=== PATIENT | male | born 1945 | race Caucasian/White ===

== ENCOUNTER → 2018-03-16 14:44 | Outpatient (CLI) | payer MEDICARE, OTHER, SELFPAY ==
--- NOTE | 2018-03-16 | DI.RAD.S_ITS ---
PROCEDURE: XR ANKLE RT MIN 3V INDICATIONS: Right Ankle Pain TECHNIQUE: 3 views of the ankle were acquired. COMPARISON: None. FINDINGS: Bones: No fractures or dislocations. Ankle mortise is normally aligned. No suspicious bony lesions. There is a corticated ossicle distal to the lateral malleolus, likely sequelae of old injury. There is calcaneal spurring. Mild degenerative changes present. Soft tissues: No tibiotalar joint effusion. Achilles tendon appears normal. There is a calcified body in the posterior aspect of the plantar soft tissue. IMPRESSION: 1. A small corticated ossicle distal to the lateral malleolus, likely sequela of old injury. 2. Degenerative joint disease. 3. A calcified body in the plantar soft tissue. Dictated by: Heide Vincent M.D. on 03/16/2018 at 15:31 Approved by: Heide Vincent M.D. on 03/16/2018 at 15:34
== END ==
PROVIDERS: PCP Family Medicine; Visit Provider Family Medicine
DX: M25.571 Pain in right ankle and joints of right foot (principal); M19.071 Primary osteoarthritis, right ankle and foot; M77.31 Calcaneal spur, right foot
CPT/HCPCS: 73610

== ENCOUNTER 2019-04-12 07:14 | Day surgery (SDC) | payer MEDICARE, OTHER, SELFPAY ==
--- NOTE | 2019-04-11 19:17 | PM.PREOP ---
Pre-operative Note Interval Note History & Physical reviewed/Exam performed by Physician: Yes Changes to H&P: No H&P completed within 30 days and has changed as indicated here:: His fasting glucose is 167 today and he took metformin. He does not monitor at home. He is stable to proceed to surgery as planned.
[2019-04-12] MEDS: PROPARACAINE 0.5% OPHTH SOL 2 DROPS EYE-OP (08:04)
[2019-04-12 08:05] VITALS: BP 159/87; PULSE 62; RESP 15; TEMP 36.1; O2SAT 98; BMI 34.2
--- NOTE | 2019-04-12 08:11 | PM.OP.1 ---
Operative Date/Time/Diagnoses Date of procedure: 04/12/19 Time of procedure: 08:45 Procedure & Clinicians Procedure: Preoperative diagnoses: 1. Right nuclear sclerotic and cortical cataract. 2. Diabetes without retinopathy. 3. Obesity. 4. s/p Blepharoplasty. Postoperative diagnoses: 1. Cataract removed by phacoemulsification with placement of posterior chamber intraocular lens. Procedure: Phacoemulsification with posterior chamber intraocular lens implant Surgeon: Jayla Lozano MD Complications: None Specimen: None Implant: ZCBOO+15.0 Blood loss: None Anesthesia: Retrobulbar with monitored standby Elsa near and Description of procedure: Patient presents with a complaint of decreased vision due to cataract which is affecting activities of daily living. 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 of daily He The patient wants surgery to improve vision. The patient was taken to the operating room and given IV sedation. A retrobulbar block consisting of 6 cc of 2% xylocaine without epinephrine mixed half and half with 0.5% Marcaine with 1 cc of hyaluronidase added is placed between the medial and lateral 1/3 of the inferior orbital rim. The eye is manually massaged for 30 sec, prepped using Betadine solution, and draped in the usual sterile fashion. Long axial length. Peribulbar block and 1% topical xylocaine gel was placed. Temporal approach was made, a 1 mm side-port incision was made 90? from the proposed clear corneal incision position. Phenylephrine 1.5% mixed with 1% xylocaine 0.2 cc was placed into the anterior chamber. Viscoat followed by Mary Grace was then placed. A 2.6 mm clear incision with a 2.6 mm blade was placed. A 360 degree capsulorrhexis style capsulotomy was then performed with a cystitome needle on a Healon. There was dense cortical spokes nasally and the capsulorrhexis was completed with Utrata forceps due to visibility. Hydrodelineation and hydrodissection were performed. The phacoemulsification unit is introduced, and sculpting notice used to groove the central lens. It is then removed in chopping mode. Epi nucleus is removed with epinuclear mode and irrigation aspiration was used to remove the peripheral cortex. The posterior capsule is polished. The intraocular lens is selected, inspected, power confirmed, and placed in the posterior chamber. The wound was stromally hydrated and tested for leaks, there was none and it was left sutureless. Vigamox 0.1 cc was placed into the anterior chamber. Kenalog 0.2 cc was placed in the superior subconjunctival space. A drop of antibiotic and was placed and the eye was patched and shielded. The patient was stable and returned to the recovery room in excellent condition. Dictated by: Jayla Lozano MD Copy to: [facility] Same procedure as scheduled: Yes
[2019-04-12] MEDS: CATARACT EYE COMPOUND (10 DROPS/SYRINGE) 3 DROPS EYE-OP (08:17)
--- NOTE | 2019-04-12 08:52 | SUR.OPER ---
Supine on eye stretcher, head on extension cradle secured with tape. Arms tucked at sides with blanket. Pillow under knees.
[2019-04-12] MEDS: HYALURONATE SODIUM 10 MG/ML SYRINGE INJ (09:04)
[2019-04-12] MEDS: CHONDROIDTIN/SOD HYALURONATE 1.05 ML SYRINGE INTRAOCULA (09:05)
[2019-04-12] MEDS: LIDOCAINE 2% 4 ML, BUPIVACAINE 0.5% (PF) 4 ML, HYALURONIDASE 150 UNIT INJ (09:05)
[2019-04-12] MEDS: BALANCED SALT IRRIG SOLN NO.2 500 ML, EPINEPHrine 1 MG IRR (09:06)
[2019-04-12] MEDS: MOXIFLOXACIN INJ 5 MG/ML VIAL EYE-OP (09:08)
[2019-04-12] MEDS: PHENYLEPHRINE/LIDOCAINE VIAL (OR) 0.2 ML EYE-OP (09:08)
[2019-04-12] MEDS: TRIAMCINOLONE 50 MG/5 ML VIAL INJ (09:08)
[2019-04-12] MEDS: ERYTHROMYCIN OPHTH 1 GM OINT 1 APPLIC EYE-RIGHT (09:10)
[2019-04-12] MEDS: LIDOCAINE JELLY 2% 5 ML 1 APPLIC TOP (09:12)
[2019-04-12 09:33] VITALS: BP 159/86; PULSE 65; RESP 16; TEMP 37.3; O2SAT 97
== END 2019-04-12 09:44 | disposition home or self-care (01) ==
LOC: OR 07:18
PROVIDERS: PCP Family Medicine; Referring Provider Ophthalmology; Visit Provider Ophthalmology
PROC: (CPT 66984; principal; 2019-04-12 08:45)
DX: H25.811 Combined forms of age-related cataract, right eye (principal)
CPT/HCPCS: 66984; J0171; J2704; J3301; J3470

== ENCOUNTER 2019-04-26 06:55 | Day surgery (SDC) | payer MEDICARE, OTHER, SELFPAY ==
--- NOTE | 2019-04-22 12:57 | PM.PREOP ---
Pre-operative Note Interval Note History & Physical reviewed/Exam performed by Physician: Yes Changes to H&P: No H&P completed within 30 days and has changed as indicated here:: Stable glucose at . Has had primary care evaluation for variable glucose and hypertension. Fasting glucose 146 AM of surgery.
--- NOTE | 2019-04-22 12:59 | P.OP_ITS ---
Operative Date/Time/Diagnoses Date of procedure: 04/26/19 Time of procedure: 08:45 Procedure & Clinicians Procedure: Preoperative diagnoses: 1. Left nuclear sclerotic and cortical cataract with a long axial length. 2. Non-insulin diabetes without retinopathy. 3. Hypertension slightly labile 4. Obesity. 5. Hypercholesterolemia. 6. Previous right cataract surgery. 7. Previous back and hip surgery. Postoperative diagnoses: 1. Cataract removed by phacoemulsification with placement of posterior chamber intraocular lens. 2. Complex surgery with use of capsular dye due to poor red reflex from advanced cortical change. Procedure: Phacoemulsification with posterior chamber intraocular lens implant Surgeon: Jayla Lozano MD Complications: None Specimen: None Implant: ZCBOO +14.0 Blood loss: None Anesthesia: Retrobulbar with monitored standby Description of procedure: Patient presents with a complaint of decreased vision due to cataract which is affecting activities of daily living. 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 He feels his current vision is reduced both at distance and near and he was wearing contact lenses The patient wants surgery to improve vision. His glucose fasting was 146 prior to surgery in his blood pressure was stable although both have been labile in the last several weeks. The patient was taken to the operating room and given IV sedation. Under the operating microscope it was noted that the patient had very poor red reflex and diffuse cortical changes in that it was best to use capsular dye. A retrobulbar block consisting of 6 cc of 2% xylocaine without epinephrine mixed half and half with 0.5% Marcaine with 1 cc of hyaluronidase added is placed between the medial and lateral 1/3 of the inferior orbital rim. The eye is manually massaged for 30 sec, prepped using Betadine solution, and draped in the usual sterile fashion. Temporal approach was made, a 1 mm side-port incision was made 90? from the proposed clear corneal incision position. Phenylephrine 1.5% mixed with 1% xylocaine 0.2 cc was placed into the anterior chamber. Viscoat followed by Aleshaon was then placed. An air bubble was placed and then Visudyne capsular dye placed into the anterior chamber A 2.6 mm clear incision with a 2.6 mm blade was placed. A 360 degree capsulorrhexis style capsulotomy was then performed with a cystitome needle on a Healon. Greatly aided by the capsular dye. It was a very deep anterior chamber is a high myope. Hydrodelineation and hydrodissection were performed. The phacoemulsification unit is introduced, and sculpting notice used to groove the central lens. It is then removed in chopping mode. Epi nucleus is removed with epinuclear mode and irrigation aspiration was used to remove the peripheral cortex. The posterior capsule is polished. The intraocular lens is selected, inspected, power confirmed, and placed in the posterior chamber. The wound was stromally hydrated and tested for leaks, there was none and it was left sutureless. Vigamox 0.1 cc was placed into the anterior chamber. Kenalog 0.2 cc was placed in the superior subconjunctival space. A drop of antibiotic and was placed and the eye was patched and shielded. The patient was stable and returned to the recovery room in excellent condition. Dictated by: Jayla Lozano MD Copy to: [facility] Same procedure as scheduled: Yes
[2019-04-26] MEDS: PROPARACAINE 0.5% OPHTH SOL 2 DROPS EYE-OP (08:02)
[2019-04-26] MEDS: CATARACT EYE COMPOUND (10 DROPS/SYRINGE) 3 DROPS EYE-OP (08:04)
[2019-04-26 08:11] VITALS: BP 176/89; PULSE 56; RESP 16; TEMP 36.2; O2SAT 96; BMI 32.5
--- NOTE | 2019-04-26 09:10 | SUR.OPER ---
Supine on eye stretcher, head on extension cradle secured with tape. Arms tucked at sides with blanket. Pillow under knees.
[2019-04-26] MEDS: TRYPAN BLUE 0.5 ML SYRINGE INJ (09:20)
[2019-04-26] MEDS: LIDOCAINE 2% 4 ML, BUPIVACAINE 0.5% (PF) 4 ML, HYALURONIDASE 150 UNIT INJ (09:22)
[2019-04-26] MEDS: MOXIFLOXACIN INJ 5 MG/ML VIAL EYE-OP (09:23)
[2019-04-26] MEDS: PHENYLEPHRINE/LIDOCAINE VIAL (OR) 0.2 ML EYE-OP (09:24)
[2019-04-26] MEDS: TRIAMCINOLONE 50 MG/5 ML VIAL INJ (09:24)
[2019-04-26] MEDS: HYALURONATE SODIUM 10 MG/ML SYRINGE INJ (09:25)
[2019-04-26] MEDS: CHONDROIDTIN/SOD HYALURONATE 1.05 ML SYRINGE INTRAOCULA (09:25)
[2019-04-26] MEDS: BALANCED SALT IRRIG SOLN NO.2 500 ML, EPINEPHrine 1 MG IRR (09:26)
[2019-04-26] MEDS: ERYTHROMYCIN OPHTH 1 GM OINT 1 APPLIC EYE-LEFT (09:27)
[2019-04-26 10:00] VITALS: BP 170/80; PULSE 57; RESP 16; TEMP 36.6; O2SAT 99
== END 2019-04-26 10:11 | disposition home or self-care (01) ==
LOC: OR 06:58
PROVIDERS: PCP Family Medicine; Referring Provider Ophthalmology; Visit Provider Ophthalmology
PROC: (CPT 66982; principal; 2019-04-26 08:45)
DX: H25.812 Combined forms of age-related cataract, left eye (principal)
CPT/HCPCS: 66982; J0171; J2704; J3301; J3470

== ENCOUNTER → 2021-06-23 14:14 | Outpatient (CLI) | payer MEDICARE, OTHER, SELFPAY ==
[2021-06-23 16:19] LABS: COVID19 -Nasal RAPID Negative (Negative)
== END ==
PROVIDERS: PCP Family Medicine; Visit Provider Family Medicine Sleep Medicine
DX: Z20.822 Contact with and (suspected) exposure to COVID-19 (principal)
CPT/HCPCS: 87635; C9803

== ENCOUNTER 2021-06-24 13:59 | Day surgery (SDC) | payer MEDICARE, OTHER, SELFPAY ==
--- NOTE | 2021-06-24 12:38 | P.HP_ITS ---
History of Present Illness History of Present Illness Date Patient Seen: 06/24/21 Chief complaint: SDC Narrative: 76 year old male comes in today for consideration of a screening colonoscopy. He has had 2 previous colonoscopies, both normal. There have been no lower GI symptoms suggesting disease such as change in bowel habits, bleeding, abdominal pain or anemia. There's been no family history of colon cancer or colon polyps. Overall health issues have been stable, including no major cardiac events for at least 6 weeks. PCP: Dr. Gill Past medical history: Obstructive sleep apnea BPH Diabetes mellitus type 2 Hyperlipidemia Hypertension Obesity GERD Erectile dysfunction Right footdrop Past Surgical History: Lower back disc 1981 Right hip replacement 01/08/2015 Family History: Father: Diabetes type 2, of pancreatic cancer age 70+ Mother: of breast cancer age 40 Social History: Marital Status: Occupation:Retired computer software engineer Household Members: spouse Alcohol drinks/day: 1/day wine >5/day in last 3 mos: no Type of Exercise: bike,walk,row Exercise Times per Week: 3 Smoking Status: current some day smoker Tobacco Type: cigars Drug Use: no Patient History Medical History (Updated 11/16/20 @ 13:46 by ANNEMARIE Jeter) Acquired right foot drop (~1981) BPH (benign prostatic hyperplasia) Essential hypertension Hyperlipidemia Lumbosacral pain, chronic Obesity (BMI 30-39.9) (Unknown) Obstructive sleep apnea, adult Snoring Type 2 diabetes mellitus (~04/26/19) Surgical History (Updated 11/16/20 @ 13:18 by ANNEMAREI Jeter) Cataract extraction status of right eye History of lumbosacral spine surgery (~1981) History of total right hip arthroplasty Family & Social History Social History: household members spouse Tobacco & Substance use: Tobacco type cigars Smoking Status Current some day smoker alcohol intake current alcohol intake frequency a few times a week Substance Use Type does not use Meds Home Medications and Allergies Home Medications Medication Instructions Recorded Confirmed Type aspirin 81 mg tablet,delayed 81 mg PO DAILY 04/12/19 06/24/21 History release (Aspir-) atorvastatin 20 mg tablet 20 mg PO DAILY 04/12/19 06/24/21 History glipizide 2.5 mg tablet, extended 2.5 mg PO DAILY 04/12/19 06/24/21 History release 24 hr losartan 25 mg tablet 25 mg PO DAILY 04/12/19 06/24/21 History metformin 1,000 mg tablet 1,000 mg PO BID 04/12/19 06/24/21 History omeprazole 20 mg capsule,delayed 20 mg PO DAILY 04/26/19 06/24/21 History release ResMed AirSense 10 Auto 11/15/20 11/15/20 History melatonin See Rx Instructions .ROUTE .COMPLEX 06/24/21 06/24/21 History Allergies Allergy/AdvReac Type Severity Reaction Status Date / Time No Known Drug Allergies Allergy Verified 06/24/21 14:14 Review of Systems Review of Systems Narrative: All remaining ROS were reviewed and negative except as addressed. Exam Narrative Exam Narrative: GENERAL: Alert and oriented, appearing stated age and in no acute distress. HEENT: Head normocephalic/atraumatic. Extraocular movements intact. LUNGS: Clear to ausculation bilaterally, no wheezes, rhonchi or rales. CV: Normal S1 and S2 with regular rate and rhythm, no audible murmurs, rubs or gallops. ABDOMEN: Soft, non-tender, non-distended, no organomegaly. Positive bowel sounds. EXTREMITIES: No clubbing, cyanosis, or edema. NEURO: Cranial nerves II through XII grossly intact, no focal deficits. PSYCH: Alert and oriented x 3. SKIN: No concerning lesions. Assessment & Plan Assessment & Plan narrative: 1. Screening for colon cancer Plan for colonoscopy. The nature and character of the procedure as well as anticipated results were discussed. The possibility of not completing the procedure was also discussed. Possible complications including aspiration pneumonia, bleeding, perforation and reaction to medications either for sedation or preparation and missed lesions were discussed. Questions were answered and proceeding to the colonoscopy was elected. Informed consent signed. I sincerely appreciate the referral allowing me to participate in this patient's care. Please contact me with any questions or concerns.
--- NOTE | 2021-06-24 12:43 | PM.OP.COLON ---
Operative Date/Time/Diagnoses Date of procedure: 06/24/21 Procedure Notes SCOAP/Timeout: 3:36 p.m. Procedure in detail: ENDOSCOPIST: Noemi De La Cruz MD Sedation RN: Carisa Noguera RN Sedation start time: 3:37 p.m. Sedation end time: 4:10 p.m. PROCEDURE: Colonoscopy INDICATIONS: 1. Screening for colon cancer MEDICATION: Levsin 0.125 mg sublingual, incremental doses of Versed and fentanyl until appropriate level sedation achieved. ASA CLASS: 2 CECAL WITHDRAWAL TIME: 8 minutes COMPLICATIONS: None. EXTENT OF PROCEDURE: Cecum. QUALITY OF PREP: Good with portions of liquid stool. PROCEDURE: Prior to insertion of the colonoscope, a digital rectal examination was accomplished with circumferential palpation of the distal rectal mucosa without significant findings being noted. The high-definition colonoscope was passed into the rectum in the usual fashion and advanced over to the cecum with some difficult due to tortuosity. The ileocecal valve, appendiceal stoma, and medial wall all could be inspected and no abnormalities were seen. ASCENDING COLON: As the colonoscope was withdrawn, care was taken to expose and inspect the haustral folds and no abnormalities were seen. HEPATIC FLEXURE: Normal, no polyps, diverticula or other abnormalities. TRANSVERSE COLON: Normal, no polyps, diverticula or other abnormalities. DESCENDING COLON: Minor diverticulosis, otherwise, normal, no polyps or other abnormalities. SIGMOID COLON: Minor diverticulosis, otherwise, normal, no polyps or other abnormalities. RECTUM: Normal. J maneuver was produced. There was no significant perianal disease. The J maneuver was broken. The remainder of the rectum was inspected and there was moderate external hemorrhoid disease. The scope was withdrawn. IMPRESSION: 1. Normal colonoscopy 2. Left-sided diverticulosis, minor 3. External hemorrhoid disease PLAN: 1. Secondary to age, this can be patient's last colonoscopy. The possibility of a missed lesion including a malignancy has been discussed with the patient previously. Potential alarm symptoms have been discussed and should be reported immediately.
[2021-06-24] MEDS: HYOSCYAMINE 0.125 MG TABLET PO (14:19)
[2021-06-24 14:27] VITALS: BP 141/84; PULSE 63; RESP 16; TEMP 36.3; O2SAT 98; BMI 33.9
[2021-06-24] MEDS: LACTATED RINGERS 1,000 ML 200 ML IV (15:16)
[2021-06-24] MEDS: MIDAZOLAM 5 MG/5 ML VIAL 6 MG IV (15:37)
[2021-06-24] MEDS: fentaNYL 250 MCG/5 ML INJ 200 MCG IV (15:37)
[2021-06-24 16:14] VITALS: BP 145/83; PULSE 64; RESP 12; TEMP 37.4; O2SAT 97
[2021-06-24 16:20] VITALS: BP 132/74; PULSE 64; RESP 18; O2SAT 99
[2021-06-24 16:25] VITALS: BP 133/73; PULSE 62; RESP 12; O2SAT 98
[2021-06-24 16:30] VITALS: BP 127/72; PULSE 59; RESP 13; TEMP 36.6; O2SAT 98
[2021-06-24 16:41] VITALS: BP 133/71; PULSE 63; RESP 19; TEMP 36.9; O2SAT 98
== END 2021-06-24 16:52 | disposition home or self-care (01) ==
PROVIDERS: PCP Family Medicine; Referring Provider Student in an Organized Health Care Education/Training Program; Visit Provider Student in an Organized Health Care Education/Training Program
PROC: 0DJD8ZZ Inspection of Lower Intestinal Tract, Via Natural or Artificial Opening Endoscopic (ICD-10-PCS; CPT 45378; principal; 2021-06-24 15:15)
DX: Z12.11 Encounter for screening for malignant neoplasm of colon (principal); K57.30 Diverticulosis of large intestine without perforation or abscess without bleeding; K64.4 Residual hemorrhoidal skin tags
CPT/HCPCS: G0105; J2250; J3010

== ENCOUNTER 2022-01-30 13:26 | Emergency (ER) | payer MEDICARE, OTHER, SELFPAY ==
[2022-01-30 13:55] VITALS: BP 172/76; PULSE 71; RESP 18; TEMP 36.6; O2SAT 96; BMI 33.2
--- NOTE | 2022-01-30 14:03 | DI.RAD.S_ITS ---
PROCEDURE: XR ELBOW RT MIN 3V INDICATIONS: atraumatic elbow red/swelling TECHNIQUE: 3 views of the elbow were acquired. COMPARISON: None. FINDINGS: Bones: No fractures or dislocations. No suspicious bony lesions. Soft tissues: No elbow joint effusion. No suspicious soft tissue calcifications. Soft tissue swelling posterior to olecranon. IMPRESSION: No acute osseous abnormalities. Soft tissue swelling over the olecranon. Dictated by: Heide Vincent M.D. on 01/30/2022 at 14:49 Approved by: Heide Vincent M.D. on 01/30/2022 at 14:50
[2022-01-30 14:34] LABS: Add Manual Diff / Slide Review NO; Basophils Absolute Auto 0 /uL (0-100); Basophils Percent Auto 0.7 % (0-2); Eosinophils Absolute Auto 100 /uL (0-450); Eosinophils Percent Auto 1.4 % (2-4); Hematocrit 39.7 % (41-53); Hemoglobin 13.6 g/dL (13.5-17.5); Lymphocytes Absolute Auto 1400 /uL (1100-4500); Lymphocytes Percent Auto 19.5 % (25-40); Mean Corpuscular HGB Conc 34.4 % (30-36); Mean Corpuscular Hemoglobin 31.1 PG (26-34); Mean Corpuscular Volume 90.4 fL (80-100); Monocytes Absolute Auto 700 /uL (0-900); Neutrophils Absolute Auto 5000 /uL (1500-7000); Neutrophils Percent Auto 69.4 % (50-75); Platelet Count 174 X10^3/uL (150-400); Red Blood Cell Count 4.39 X10^6/uL (4.5-5.9); Red Cell Distribution Width 14.4 % (11.6-14.8); White Blood Cell Count 7.3 X10^3/uL (4.5-11.0)
[2022-01-30 14:49] LABS: BUN Creatinine Ratio 23.5 (6-22); Blood Urea Nitrogen 24 mg/dL (9-20); C-Reactive Protein Quant 5.9 mg/dL (<1.0); Calcium 8.8 mg/dL (8.4-10.2); Carbon Dioxide 26 mmol/L (22-32); Chloride 103 mmol/L (98-107); Estimated Glomerular Filt Rate > 60 mL/min (>60); Glucose 195 mg/dL (80-110); HEMOLYSIS < 15 (0-50); Potassium 4.1 mmol/L (3.4-5.1); Sodium 140 mmol/L (137-145)
[2022-01-30 15:06] LABS: Erythrocyte Sedimentation Rate 16 MM/HR (0-15)
== END 2022-01-30 15:58 | disposition left against medical advice (07) ==
PROVIDERS: Emergency Provider Emergency Medicine; PCP Family Medicine
DX: M25.521 Pain in right elbow (principal)
CPT/HCPCS: 36415; 73080; 80048; 84550; 85025; 85651; 86140; 99283

== ENCOUNTER → 2022-03-31 11:53 | Outpatient (CLI) | payer MEDICARE, OTHER, SELFPAY ==
--- NOTE | 2022-03-31 | DI.RAD.S_ITS ---
PROCEDURE: XR KNEE LT 3V INDICATIONS: left knee pain TECHNIQUE: 3 views of the knee were acquired. COMPARISON: None. FINDINGS: Bones: No fractures or dislocations. No suspicious bony lesions. Mild tricompartmental osteoarthritis. Patellar osteophytes. Soft tissues: No joint effusion. No suspicious soft tissue calcifications. Infrapatellar tendon thickened. IMPRESSION: Tricompartmental osteoarthritis. Infrapatellar tendon thickening concerning for tendinosis. Dictated by: Pinky Gaffney MD, PhD on 03/31/2022 at 13:20 Approved by: Pinky Gaffney MD, PhD on 03/31/2022 at 13:20
== END ==
PROVIDERS: PCP Family Medicine; Referring Provider Family Medicine; Visit Provider Family Medicine
DX: M25.562 Pain in left knee (principal); M17.12 Unilateral primary osteoarthritis, left knee
CPT/HCPCS: 73562

== ENCOUNTER → 2023-06-22 10:24 | Outpatient (CLI) | payer MEDICARE, OTHER, SELFPAY ==
--- NOTE | 2023-06-22 10:26 | DI.RAD.S_ITS ---
PROCEDURE: XR ANKLE RT MIN 3V INDICATIONS: PAIN IN RIGHT ANKLE TECHNIQUE: 3 views of the ankle were acquired. COMPARISON: [facility], CR, XR ANKLE RT MIN 3V, 03/16/2018, 15:00. FINDINGS: Bones: No fractures or dislocations. Ankle mortise is normally aligned. No suspicious bony lesions. Possible old fracture fragment distal to the fibular tip. Mild osteoarthritic changes. Calcaneal spurring. Soft tissues: No tibiotalar joint effusion. Achilles tendon appears normal. Vascular calcifications consistent with atherosclerosis. There is a calcific density in the posterior plantar soft tissue, unchanged. IMPRESSION: 1. No acute bony abnormality or significant effusion. 2. Mild osteoarthritis. 3. Calcaneal spurring. 4. Probably old injury in the tip of the distal fibula. 5. A calcified body in the posterior aspect of the plantar soft tissue, unchanged. Dictated by: Heide Vincent M.D. on 06/23/2023 at 13:20 Approved by: Heide Vincent M.D. on 06/23/2023 at 13:23
== END ==
PROVIDERS: PCP Family Medicine; Referring Provider Family Medicine; Visit Provider Family Medicine
DX: M19.071 Primary osteoarthritis, right ankle and foot (principal); M77.31 Calcaneal spur, right foot; M25.571 Pain in right ankle and joints of right foot; G89.29 Other chronic pain
CPT/HCPCS: 73610

== ENCOUNTER → 2024-04-13 11:11 | Outpatient (CLI) | payer MEDICARE, OTHER, SELFPAY ==
[2024-04-13 13:12] LABS: Hemoglobin A1C% w Est Avg Glu 6.9 % (4.0-6.0)
[2024-04-13 13:19] LABS: BUN Creatinine Ratio 21.7 (6-22); Blood Urea Nitrogen 28 mg/dL (9-20); Calcium 9.7 mg/dL (8.4-10.2); Carbon Dioxide 23 mmol/L (22-32); Chloride 104 mmol/L (98-107); Estimated Glomerular Filt Rate 57 mL/min (>60); Glucose 174 mg/dL (80-110); HEMOLYSIS < 15 (0-50); Potassium 4.1 mmol/L (3.4-5.1); Sodium 138 mmol/L (137-145)
== END ==
PROVIDERS: PCP Family Medicine; Referring Provider Family Medicine; Visit Provider Family Medicine
DX: E11.9 Type 2 diabetes mellitus without complications (principal); N18.31 Chronic kidney disease, stage 3a
CPT/HCPCS: 36415; 80048; 83036